=== PATIENT | female | born 2000 | race Caucasian/White ===

== ENCOUNTER 2020-05-04 19:02 | Emergency (ER) | payer OTHER ==
[~2020-05-04] VITALS: Ht 160 cm; Wt 44.9 kg
[2020-05-04 21:20] VITALS: BP 114/69
[2020-05-04] MEDS ORDERED: TETANUS-DIPTH-ACEL PERTUSSIS 0.5ML SYR Tdap IM ONE (21:45)
[2020-05-04] MEDS ORDERED: cefTRIAXone SOD 1,000 MG VL IM ONE (21:45)
== END 2020-05-04 22:15 | disposition home or self-care (01) ==
LOC: ER 19:02
DX: S61.552A Open bite of left wrist, initial encounter (principal); W55.01XA Bitten by cat, initial encounter; Y93.89 Activity, other specified; Y92.89 Other specified places as the place of occurrence of the external cause; Y99.8 Other external cause status
CPT/HCPCS: 90471; 90715; 96372; 99284; J0696

== ENCOUNTER 2020-05-13 22:35 | Emergency (ER) | payer OTHER ==
[~2020-05-13] VITALS: Ht 160 cm; Wt 44.9 kg
[2020-05-13] MEDS ORDERED: ACETAMINOPHEN 325 MG TAB PO ONE (23:00)
[2020-05-14 00:06] LABS: Basophils # (auto) 0 10 ^3/uL (0-0.2); Eosinophils # (auto) 0 10 ^3/uL (0-0.8); Mean Corpuscular Hgb Conc. 31.4 g/dL (32.0-36.0); Monocytes # (auto) 0.5 10 ^3/uL (0-1.3); Neutrophils % (auto) 93.7 % (37.0-80.0); Nucleated Red Blood Cells % 0.1 %; Red Cell Distribution Width 16.3 % (11.8-14.3)
[2020-05-14 00:07] LABS: Basophils % (auto) 0.1 % (0.0-2.0); Hemoglobin 9.7 g/dL (12.2-16.2); Lymphocytes # (auto) 0.4 10 ^3/uL (0.4-5.4); Lymphocytes % (auto) 2.6 % (10.0-50.0); Mean Corpuscular Volume 57.3 fL (80.0-100.0); Monocytes % (auto) 3.6 % (0.0-12.0); Neutrophils # (auto) 13.6 10 ^3/uL (1.6-8.6); Platelet Count (auto) 298 10^3/uL (140-450); Red Blood Cells 5.41 10^6/uL (4.0-5.20); White Blood Cell 14.6 10^3/uL (4.4-10.8)
[2020-05-14 00:24] LABS: Albumin 4.4 g/dL (3.4-5.0); Calcium 8.9 mg/dL (8.5-10.1); Potassium 3.1 mmol/L (3.5-5.1)
[2020-05-14 00:27] LABS: Total Protein 8.3 g/dL (6.4-8.2)
[2020-05-14 02:34] VITALS: BP 109/61
== END 2020-05-14 04:01 | disposition left against medical advice (07) ==
LOC: ER 22:36
DX: O99.511 Diseases of the respiratory system complicating pregnancy, first trimester (principal); J01.00 Acute maxillary sinusitis, unspecified; O21.8 Other vomiting complicating pregnancy; Z20.828 Contact with and (suspected) exposure to other viral communicable diseases; Z3A.12 12 weeks gestation of pregnancy
CPT/HCPCS: 36415; 80053; 82728; 84702; 85025; 87070; 87635; 87804; 87880